=== PATIENT | male | born 1975 | race Two or more races ===

== ENCOUNTER 2018-08-22 18:34 | Emergency (ER) | payer MEDICAID, OTHER ==
[~2018-08-22] VITALS: Ht 177.8 cm; Wt 103.4 kg
[2018-08-22 18:50] VITALS: BP 145/88
== END 2018-08-22 21:45 | disposition left against medical advice (07) ==
LOC: ER 18:59
DX: R07.89 Other chest pain (principal); Z53.21 Procedure and treatment not carried out due to patient leaving prior to being seen by health care provider
CPT/HCPCS: 93005